=== PATIENT | female | born 1985 | race Caucasian/White ===

== ENCOUNTER 2019-06-26 10:45 | Day surgery (SDC) | payer OTHER ==
--- OUTSIDE RECORDS SUMMARY | 2019-06-26 10:48 | XMS REPORT | Encounter Summary ---
:1985 Author Care Team Providers Name Role Phone Miguel Angel Hernandez MD Primary Care Provider Unavailable Reason for Visit sore throat Instructions 1. Sore throat symptom sore throat: care instructions CBC w/ auto diff mononucleosis, heterophile Ab, blood Medrol (Oracio) 4 mg tablets in a dose pack 2. Temporomandibular joint disorder temporomandibular disorder: care instructions methocarbamol 750 mg tablet Discussion Note: None recorded. Plan of Care Reminders Provider Appointments None recorded. Lab CBC W/ Auto [place] Diff 09/30/2018 [facility] (Lab) Mononucleosis, [place] Heterophile Ab, Blood 09/30/2018 [facility] (Lab) Referral None recorded. Procedures None recorded. Surgeries None recorded. Imaging None recorded. Medications Name Start Date amoxicillin 875 mg tablet Medrol (Oracio) 4 mg tablets in a dose pack Take 1 tablet by oral route. take as directed for irritated throat methocarbamol 750 mg tablet Take 1 tablet every day by oral route for 30 days. take as a muscle relaxant montelukast 10 mg tablet TAKE 1 TABLET BY MOUTH EVERY DAY terbinafine HCl 250 mg tablet Medications Administered None recorded. Vitals Height Weight BMI Blood Pressure 63 in 260 lbs 46.1 kg/m2 161/105 mm[Hg] Lab Results None recorded. Allergies Code Code System Name Reaction Severity Status Onset 7052 RxNorm Morphine Itching Moderate to Active Severe Problems Name Status Onset Date Source Temporomandibular Joint Disorder Active 06/18/2017 Elevated Liver Enzymes Level Active 06/18/2017 Steatosis of Liver Active 06/20/2017 Chronic Frontal Sinusitis Active 08/28/2017 Sore Throat Symptom Active 09/30/2018 Streptococcal Sore Throat Active Encounter Depressive Disorder Active Encounter Acute Sinusitis Active Encounter Frontal Sinusitis Active Encounter Acute Upper Respiratory Infection Active Encounter Acute Bronchitis Active Encounter Bronchitis Active Encounter Abdominal Pain Active Encounter Procedures Date Name Performed by 08/05/2009 Caesarean Section Information not available Vaccine List Vaccine Type influenza, injectable, quadrivalent, preservative free 05/29/20170.5 mL Social History Smoking Status Never Smoker Past Encounters 09/30/2018 Sore Throat Symptom; Temporomandibular Joint Disorder Miguel Angel Hernandez MD: [address] [place] [address], [address], [place] [address], Ph. History of Present Illness Note: CC persistent sore throat<div>hpi just finished 10 days of amoxicillin for strep throat still having pain</div><div> submandibular nodes tender</div><div>CC TMJ </div><div> hpi muscle relaxants helping</div><div>ros </div><div> gen above</div><div>heent above</div><div>cv neg</div ><div>resp neg</div>Review of Systems: ROS as noted in the HPI Review of Systems None recorded. Physical Exam Dr. Hernandez Brief Adult Exam - M/F Reported By: Patient Constitutional: General Appearance: well-developed, overweight. Level of Distress: mild distress. Ambulation: ambulating normally ENMT: Ears: no lesions on external ear, EACs clear, TMs clear, TM mobility normal. Nose: nares patent, nasal passages clear. Oropharynx: erythema Neck: Neck: supple, trachea midline, FROM. Lymph Nodes: cervical LAD Lungs: Auscultation: breath sounds normal, good air movement, CTA except as noted, no wheezing, no rales/crackles, no rhonchi Cardiovascular: Heart Auscultation: RRR, no rubs, no gallops
--- OUTSIDE RECORDS SUMMARY | 2019-06-26 10:48 | XMS REPORT | Encounter Summary ---
:1985 Author Care Team Providers Name Role Phone Miguel Angel Hernandez MD Primary Care Provider [phone] Reason for Visit sore throat; cough / wheezing Instructions 1. Sore throat symptom rapid strep group A, throat 2. Streptococcal sore throat strep throat: care instructions Zithromax Z-Oracio 250 mg tablet Discussion Note: None recorded. Plan of Care Reminders Provider Appointments None recorded. Lab Rapid Strep 04/09/2019 In-House Results Group a, Throat Referral None recorded. Procedures None recorded. Surgeries None recorded. Imaging None recorded. Medications Name Start Date methocarbamol 750 mg tablet Take 1 tablet every day by oral route for 30 days. take as a muscle relaxant montelukast 10 mg tablet TAKE 1 TABLET BY MOUTH EVERY DAY Zithromax Z-Oracio 250 mg tablet TAKE 2 TABLETS (500 MG) BY ORAL ROUTE ONCE DAILY FOR 1 DAY THEN 1 TABLET (250 MG) BY ORAL ROUTE ONCE DAILY FOR 4 DAYS take as directed for strep throat Medications Administered None recorded. Vitals Height Weight BMI Blood Pressure 63 in 259 lbs 2 oz 45.9 kg/m2 140/72 mm[Hg] Lab Results None recorded. Allergies Code [...] quadrivalent, preservative free 05/29/20170.5 mL Social History Tobacco Smoking Status Never Smoker Past Encounters 04/09/2019 Sore Throat Symptom; Streptococcal Sore Throat Miguel Angel Hernandez MD: [address] [place] [address], [address], [place] [address], Ph. [phone] History of Present Illness Note: CC sore throat and cough x 2 days <div>hpi has had low grade fever and not feeling well</div><div>ros</div><div>gen above</div><div>heent above</div><div>cv neg</div> <div>resp above</div>Review of Systems: ROS as noted in the HPI Review of Systems None recorded. Physical Exam Dr. Hernandez Brief Adult Exam - M/F Reported By: Patient Constitutional: General Appearance: well-developed, obese. Level of Distress: mild distress. Ambulation: ambulating normally ENMT: Ears: no lesions on external ear, EACs clear, TMs clear, TM mobility normal. Nose: nares patent, nasal passages clear. Oropharynx: moist mucous membranes, no exudates, tonsils not enlarged, erythema Lungs: Auscultation: rhonchi Cardiovascular: Heart Auscultation: RRR
[2019-06-26] MEDS ORDERED: Ringers Lactate 1,000 ML IV ONE (10:52)
[2019-06-26] MEDS ORDERED: MIDAZOLAM HCL 2 MG/2 ML INJ ONE (11:06)
[2019-06-26] MEDS ORDERED: LIDOCAINE 1% MPF 5 ML VIAL ONE (11:06)
[2019-06-26] MEDS ORDERED: FENTANYL CITR 100 MCG/2 ML ONE ×2 (11:06→12:05)
[2019-06-26] MEDS ORDERED: PROPOFOL 200 MG/20 ML VIAL IV ONE (11:06)
[2019-06-26] MEDS ORDERED: ROCURONIUM 50 MG/5 ML VIAL IV ONE (11:06)
[2019-06-26] MEDS ORDERED: dexAMETHasone 10 MG/ML VIAL ONE (11:08)
[2019-06-26] MEDS: BUPIVACA 0.5%/EPI 0.0005%/PF 10 ML VIAL ONE ×2 (12:14→12:20)
[2019-06-26] MEDS ORDERED: GLYCOPYRROLATE 0.2 MG/ML SYR ONE ×4 (12:18→12:26)
[2019-06-26] MEDS ORDERED: KETOROLAC 30 MG/ML INJ ONE (12:18)
[2019-06-26] MEDS ORDERED: ONDANSETRON 4 MG/2 ML VIAL ONE (12:19)
[2019-06-26] MEDS ORDERED: NEOSTIGMINE 1 MG/ML -5 ML ONE (12:19)
--- NOTE | 2019-06-26 12:26 | P.OP ---
Pre-Op Diagnosis: Chronic tonsillitis Post-Op Diagnosis: Chronic tonsillitis Procedure: Tonsillectomy Anesthesia: Other (GA via ETT) Fluids/ Blood products: Other (crystalloid 600ml) Estimated blood loss: Other (5ml) Specimen: Other (bilateral tonsils) Findings: chronically inflammed, cryptic and scarred tonsils Complications: None Indication: Patient persistent issues in spite of good medical management. Details of Operation: The patient was brought to the operating room and placed under general anesthesia via endotracheal tube. The head of bed was turned 90 degrees. A Shoulder roll was placed and the neck extended. A head drape was applied. The McIvor mouth gag was placed and suspended from the Hunter stand. The oxygen concentrate was confirmed with the smoking tobacco packer hand and was less than forty percent. Weight-based dexamethasone was administered by the smoking tobacco packer hand. The soft palate was palpated and there was no submucous cleft. A red rubber catheter was placed in the nose and secured to retract the soft palate. The tonsils were noted to be submucosal with deep crypts and liths. The left tonsil was grasped with a straight Allis clamp. The bovie electocautery was used to incision the mucosa over the anterior pillar and identify the tonsillar capsule. The tonsil was dissected using cautery and blunt dissection until free from soft tissue attachments. A tonsil ball was placed to aid hemostasis. The right tonsil was removed in a similar manner. The laryngeal mirror was used to visualize the nasopharynx. The adenoid size was minimal. The adenoids were not removed. Hemostasis was achieved using packing and cautery as needed. Blood loss was minimal. All packing was removed. The tonsillar fossae were injected with 0.5% Marcaine with epinephrine. A total of 3 mL was used. A Salum sump orogastric tube was used to decompress the stomach. The red rubber catheter was removed and used to suction the nasopharynx and nasal cavity. The mouth gag was removed; there was no evidence of injury to the lips, teeth or tongue. The mandible was mobile. Disposition: The patient was then awakened from anesthesia and taken to the recovery room in stable condition.
[2019-06-26] MEDS: HYDROMORPHONE HCL 1 MG/ML INJ ONE ×4 (12:34→13:19)
[2019-06-26] MEDS: LABETALOL 20 MG/4ML SYRINGE IV ONE ×2 (12:35→13:09)
[2019-06-26] MEDS ORDERED: LABETALOL HCL 100 MG/20 ML ONE (12:36)
[2019-06-26] MEDS ORDERED: PROMETHAZINE 25 MG/ML VIAL ONE (12:52)
[2019-06-26] MEDS ORDERED: HYDROMORPHONE HCL 1 MG/ML INJ ONE (13:27)
[2019-06-26] MEDS ORDERED: HYDROCOD 2.5mg-ACETAMIN 108mg/5mL Soln ONE (14:34)
[2019-06-26 14:55] VITALS: BP 123/71; TEMP 98.3; O2SAT 96
== END 2019-06-26 15:26 | disposition home or self-care (01) ==
LOC: OR 10:45
PROVIDERS: ATTEND Otolaryngology
PROC: 0CTPXZZ Resection of Tonsils, External Approach (ICD-10-PCS; principal; 2019-06-26 12:00)
DX: J35.01 Chronic tonsillitis (principal); J03.01 Acute recurrent streptococcal tonsillitis; J31.0 Chronic rhinitis; K21.9 Gastro-esophageal reflux disease without esophagitis; Z88.6 Allergy status to analgesic agent
CPT/HCPCS: 81025; 88304; 42826; J2704; J2550; J2250; J3010 ×2; J1100; J1170 ×3; J2710; J7120; J2405